=== PATIENT | male | born 1985 | race Caucasian/White ===

== ENCOUNTER 2022-12-14 14:33 | Emergency (ER) | payer OTHER ==
[~2022-12-14] VITALS: Ht 177.8 cm; Wt 75.0 kg
[2022-12-14 14:53] VITALS: BP 122/84; TEMP 98.4
[2022-12-14] MEDS ORDERED: AMOXICILLIN 8751 TAB PO (15:54)
[2022-12-14 16:26] VITALS: PULSE 75
== END 2022-12-14 16:27 | disposition home or self-care (01) ==
LOC: COL.ER 14:33
DX: K13.79 Other lesions of oral mucosa (principal); B20 Human immunodeficiency virus [HIV] disease

== ENCOUNTER 2023-09-18 07:14 | Emergency (ER) | payer OTHER ==
[~2023-09-18] VITALS: Ht 177.8 cm; Wt 80.9 kg
[~2023-09-18 07:14] MED LIST: AMOXICILLIN 8751 TAB PO
[2023-09-18] MEDS ORDERED: AMOXICILLIN 8751 TAB PO (07:44)
[2023-09-18 08:14] VITALS: BP 132/95; PULSE 79; TEMP 97.9
== END 2023-09-18 08:29 | disposition home or self-care (01) ==
LOC: COL.ER 07:14
DX: K08.89 Other specified disorders of teeth and supporting structures (principal); Z21 Asymptomatic human immunodeficiency virus [HIV] infection status; Z79.899 Other long term (current) drug therapy